=== PATIENT | female | born 1970 | race Two or more races ===

== ENCOUNTER 2024-11-30 16:31 | Emergency (ER) | payer SELFPAY ==
[2024-11-30 16:37] VITALS: BP 155/85; PULSE 62; RESP 17; TEMP 36.7; O2SAT 98
[2024-11-30 16:43] VITALS: PULSE 76; RESP 18; O2SAT 99; BMI 19.2
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
[2024-11-30 18:36] VITALS: BP 137/79; PULSE 73; RESP 18; TEMP 36.8; O2SAT 95
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
[2024-11-30] MEDS: SODIUM CHLORIDE 0.9% 1000 ML 1,000 ML 85 ML IV (19:36)
[2024-11-30 19:39] VITALS: BP 121/77; PULSE 74; RESP 18; TEMP 36.8; O2SAT 98
[2024-11-30 19:48] LABS: Basophils % (Auto) 0 % (0-2.5); Eosinophils % (Auto) 0 % (0-10); Hematocrit 38.7 % (36.0-46.0); Hemoglobin 13.1 g/dL (12.0-16.0); Immature Granulocytes % (Auto) 1 % (0-0); Immature Granulocytes Auto 0.05 Thou/mm3 (0.00-0.00); Lymphocytes # (Auto) 1.1 Thou/mm3 (1.0-4.8); Lymphocytes % (Auto) 10 % (10-50); Mean Corpuscular HGB Conc 33.9 g/dl (31.0-37.0); Mean Corpuscular Hemoglobin 30.3 pg (25.0-35.0); Mean Corpuscular Volume 89 fL (80-100); Monocytes # (Auto) 0.5 Thou/mm3 (0.0-0.8); Monocytes % (Auto) 5 % (0-12); Neutrophils # (Auto) 9.1 Thou/mm3 (1.8-7.7); Neutrophils % (Auto) 84 % (37-80); Nucleated Red Blood Cell % 0 /100 WBC (0); Platelet Count 194 Thou/mm3 (140-440); RDW Standard Deviation 40.3 fL (36.4-46.3); Red Blood Count 4.33 Miln/mm3 (4.00-5.20); White Blood Count 10.8 Thou/mm3 (3.6-11.0)
[2024-11-30 20:09] LABS: Alanine Aminotransferase 21 U/L (10-49); Albumin, Serum 4.4 gm/dL (3.5-5.0); Albumin/Globulin Ratio 1.6 (1.2-2.2); Alkaline Phosphatase 65 U/L (46-116); Anion Gap 10 (7-16); Aspartate Amino Transferase 35 U/L (0-34); BUN/Creatinine Ratio 21 Ratio (12-20); Bilirubin,Total 0.6 mg/dL (0.3-1.2); Blood Urea Nitrogen 15 mg/dL (9-23); Carbon Dioxide 27.6 mMol/L (20.0-31.0); Chloride 101 mMol/L (98-107); Creatinine (Component) 0.7 mg/dL (0.6-1.3); Estimated Creatinine Clearance 69.1 mL/min (>60); Globulin 2.8 gm/dL (2.3-3.5); Glucose 85 mg/dL (74-106); Osmolality,Calculated 277 (275-295); Potassium 3.6 mMol/L (3.4-5.1); Sodium 139 mMol/L (136-145); Total Protein 7.2 gm/dL (5.7-8.2); eGFR > 60 See Note
[2024-11-30 20:10] LABS: Partial Thromboplastin Time 27.9 Seconds (22.0-36.0)
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
[2024-11-30 22:56] VITALS: BP 111/57; PULSE 70; RESP 17; TEMP 36.9; O2SAT 100
--- NOTE | 2024-11-30 23:06 | PD.EDADDENDU ---
Emergency Room Addendum Addendum Narrative: 2300: Care assumed from Narciso Monte NP. Past medical, surgical, social and family history reviewed. Vitals and home medications reviewed. Results and treatment plan discussed. I will assume the care of the patient at this time and will follow the patient, pending transfer. Please refer to the emergency department record for history and examination from initial visit. 2321 -- Dr. Fontanez, trauma surgeon at [facility], accepts the patient for transfer.
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
[2024-12-01 01:48] VITALS: BP 101/74; PULSE 74; RESP 19; TEMP 36.8; O2SAT 100
--- NOTE | 2024-12-01 01:57 | PC.NURSE ---
EMS HERE TO [facility] AT THIS TIME. REPORT GIVEN TO JYOTI LY. RE[facility] AL[facility] AND SPOKE TO RN AT [facility] [place].
== END 2024-12-01 01:56 | disposition short-term general hospital (02) ==
PROVIDERS: Registered Nurse General Practice; Emergency Provider Emergency Medicine
DX: S32.402A Unspecified fracture of left acetabulum, initial encounter for closed fracture (principal); S32.592A Other specified fracture of left pubis, initial encounter for closed fracture; S32.302A Unspecified fracture of left ilium, initial encounter for closed fracture; Z75.1 Person awaiting admission to adequate facility elsewhere; R07.9 Chest pain, unspecified; R51.9 Headache, unspecified; R42 Dizziness and giddiness; S19.9XXA Unspecified injury of neck, initial encounter; V03.99XA Pedestrian with other conveyance injured in collision with car, pick-up truck or van, unspecified whether traffic or nontraffic accident, initial encounter
CPT/HCPCS: 36415; 70450; 71045; 71260; 72125; 73502; 74177; 80053; 85025; 85730; 99285; A4649; J7030; Q9967

== ENCOUNTER 2024-12-15 09:16 | Outpatient (AMB) | payer SELFPAY ==
[2024-12-15 09:30] VITALS: BP 117/73; PULSE 69; RESP 16; TEMP 36.7; O2SAT 97; BMI 19.2
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
== END 2024-12-15 09:59 | disposition home or self-care (01) ==
LOC: HODAHC 09:16
PROVIDERS: Supervising Provider Internal Medicine; Visit Provider Student in an Organized Health Care Education/Training Program
DX: S32.810D Multiple fractures of pelvis with stable disruption of pelvic ring, subsequent encounter for fracture with routine healing (principal); V89.2XXD Person injured in unspecified motor-vehicle accident, traffic, subsequent encounter
CPT/HCPCS: 99213; G0463